=== PATIENT | male | born 1995 | race Caucasian/White ===

== ENCOUNTER 2018-09-18 02:29 | Emergency (ER) | payer BC ==
[2018-09-18] MEDS ORDERED: Adacel (T-DAP) 0.5 ML SYRINGE ONE (03:05)
[2018-09-18] MEDS ORDERED: Bacitracin Zinc 1 Packet ONE (03:43)
--- NOTE | 2018-09-18 07:37 | CT ---
Exam: Facial bone CT scan without IV contrast: Emergency after exam 2:47 AM 09/18/2018 This a final report Left periorbital soft tissue swelling. Extensive sinus mucosal changes. No acute fracture or dislocat ion. This report is in agreement with a preliminary report given by [facility]
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
--- NOTE | 2018-09-22 08:05 | PQF ---
[facility] POST DISCHARGE CLINICAL DOCUMENTATION IMPROVEMENT CLARIFICATION FORM l Todays Date: 09/22/18 l Patients Name Bryan Mccrary l l Admit Date 09/18/18 l Disch Date 09/18/18 Collar Trimmer Name Tammy Handley Jose E Email: [email or web address] Cell: [phone] To be completed by Collar Trimmer: Present Clinical Indicators - Signs / Symptoms Results and Location in Medical Record [ ] Documentation of: Missing laceration cm for Eyebrow [ ] [ ] Documentation of: [ ] [ ] Documentation of: [ ] [ ] Documentation of: [ ] [ ] Risks [ ] [ ] [ ] Treatment [ ] Eyebrow laceration Query for missing Eyebrow laceration length cm [ ] [ ] To be completed by Physician: DR. Tenisha Carbajal The documentation in this patients record requires clarification to ensure coding compliance and accuracy. Check the appropriate box and include in your discharge summary. [ ] [ ] [ ] [ ] Please check this box if this does not apply to this patient [ ] Unable to determine [ ] Other diagnosis: Review the following information and exercise your independent professional judgment in responding to the clarification. Based upon the clinical findings, risk factors, and treatment, please clarify if you are treating one of the above probable or suspected diagnoses. Physician Signature: Date Time MTDD
== END 2018-09-18 03:59 | disposition home or self-care (01) ==
LOC: ERS 02:29
DX: S01.112A Laceration without foreign body of left eyelid and periocular area, initial encounter (principal); S01.412A Laceration without foreign body of left cheek and temporomandibular area, initial encounter; F10.129 Alcohol abuse with intoxication, unspecified; Y04.2XXA Assault by strike against or bumped into by another person, initial encounter
CPT/HCPCS: 12013; 70450; 70486; 72125; 90471; 90715